=== PATIENT | female | born 1980 | race Caucasian/White ===

== ENCOUNTER 2022-08-03 14:43 | Outpatient (CLI) | payer BC, SELFPAY ==
[2022-08-03 22:39] LABS: Iron* 94 ug/dL (37-170)
[2022-08-03 23:00] LABS: Vitamin D 25 Hydroxy* 43 ng/mL (30-80)
[2022-08-03 23:01] LABS: Free T4 Free Thyroxine* 1.04 ng/dL (0.70-1.85)
[2022-08-03 23:18] LABS: Ferritin* 26.7 ng/mL (6.24-137.0)
[2022-08-04 00:12] LABS: Chloride* 107 mmol/L (96-114)
[2022-08-04 00:13] LABS: Albumin* 4.8 g/dL (3.3-5.0); Sodium* 140 mmol/L (135-149)
[2022-08-04 00:14] LABS: Potassium* 4.4 mmol/L (3.6-5.1)
[2022-08-04 00:16] LABS: Aspartate Amino Transferase* 22 U/L (12-35); Bilirubin Total* 0.7 mg/dL (0.1-1.5); Carbon Dioxide* 22 mmol/L (20-32); Cholesterol* 230 mg/dL (90-199); Creatinine* 0.7 mg/dL (0.5-1.5); Estimated Glomerular Filt Rate 113 ml/min; Total Protein* 7.6 g/dL (6.0-8.3)
[2022-08-04 00:17] LABS: Alanine Aminotransferase* 16 U/L (4-35); Alkaline Phosphatase* 44 U/L (40-150); Blood Urea Nitrogen* 10 mg/dL (5-24); Calcium* 9.5 mg/dL (8.4-10.6); Glucose* 72 mg/dL (60-115); HDL Cholesterol* 65 mg/dL (>=50); LDL Cholesterol Calculated 124 mg/dL (<100); Triglycerides* 205 mg/dL (40-149)
[2022-08-04 00:39] LABS: C Reactive Protein* < 0.5 mg/dL (0.5-1.0)
[2022-08-05 18:34] LABS: Thyroid Peroxidase (TPO) Ab 2.9 IU/mL (0.0-9.0)
[2022-08-05 18:35] LABS: Estradiol Premenol Female 55 pg/mL
[2022-08-05 18:46] LABS: Thyroglob Bill Billed; Thyroglobulin Antibody <0.9 IU/mL (0.0-4.0); Thyroglobulin, Serum or Plasma 20.2 ng/mL (1.3-31.8)
[2022-08-05 20:31] LABS: Homocysteine, Total 9 umol/L (0-15)
[2022-08-05 20:44] LABS: Free T3 2.6 pg/mL (2.5-4.3); Transferrin 229 mg/dL (200-360)
[2022-08-05 21:15] LABS: DHEAS 165 ug/dL (61-337)
[2022-08-06 02:45] LABS: Insulin, Random 8 uIU/mL
[2022-08-06 04:12] LABS: EBV Antibody-Early (D)Ag IgG 52.3 U/mL (0.0-10.9)
[2022-08-08 06:35] LABS: Progesterone, HPLC-MS/MS <0.10 ng/mL
[2022-08-09 14:31] LABS: Sex Hormone Binding Globulin 79 nmol/L (25-122); Testosterone, Free LC-MS/MS 1.9 pg/mL (1.3-9.2); Testosterone, LC-MS/MS 20 ng/dL (9-55)
[2022-08-10 12:18] LABS: MMA Vitamin B12 Status 0.14 umol/L (0.00-0.40)
[2022-08-11 16:18] LABS: T3 Reverse - LC-MS/MS 16.8 ng/dL (9.0-27.0); T3, Ratio (T3:RT3) 5.5 (4.2-11.0); T3, Total - LC-MS/MS 92 ng/dL (80-200)
== END 2022-08-03 14:44 | disposition home or self-care (01) ==
PROVIDERS: Visit Provider Registered Nurse
DX: Z01.419 Encounter for gynecological examination (general) (routine) without abnormal findings (principal); R10.9 Unspecified abdominal pain; Z01.89 Encounter for other specified special examinations
CPT/HCPCS: 80053; 80061; 82306; 82607; 82627; 82670; 82728; 83036; 83090; 83525; 83540; 84144; 84270; 84402; 84403; 84432; 84439; 84443; 84466; 84480; 84481; 84482; 85025; 86140; 86376; 86663; 86800

== ENCOUNTER 2024-10-31 14:45 | Outpatient (CLI) | payer BC, SELFPAY ==
--- NOTE | 2024-10-31 15:00 | CRLHL7_ITS ---
For Patients: As a result of the Cures Act, medical imaging exams and procedure reports are released immediately into your electronic medical record. You may view this report before your referring provider. If you have questions, please contact your health care provider. BILATERAL DIGITAL SCREENING MAMMOGRAM WITH COMPUTER-AIDED DETECTION AND TOMOSYNTHESIS CLINICAL HISTORY: Routine screening exam. COMPARISON: None. TECHNIQUE: Digital mammogram in CC and MLO projections including computer-aided detection (CAD). Tomosynthesis was used in this interpretation. BREAST COMPOSITION: The breasts are extremely dense, which lowers the sensitivity of mammography. FINDINGS: RIGHT Breast: Clustered calcifications within the lateral breast 9 o`clock 5 cm from the nipple. LEFT Breast: No suspicious findings. IMPRESSION: RIGHT breast calcifications. RECOMMENDATIONS: Spot compression magnification views of the calcifications in the RIGHT breast in CC and ML projections. [facility] will contact the patient. A lay language report of this examination will be provided to the patient. BI-RADS Category 0: Incomplete: Need Additional Imaging Evaluation Dictated by Derrick Klein MD @ 11/03/2024 9:28:03 AM jj/Dictated by: Derrick Klein MD @ 11/03/2024 9:28:00 AM (Electronically Signed)
== END 2024-10-31 14:46 | disposition home or self-care (01) ==
PROVIDERS: Visit Provider Registered Nurse
DX: Z12.31 Encounter for screening mammogram for malignant neoplasm of breast (principal); R92.343 Mammographic extreme density, bilateral breasts
CPT/HCPCS: 77063; 77067

== ENCOUNTER 2024-11-07 07:37 | Outpatient (CLI) | payer BC, SELFPAY ==
--- NOTE | 2024-11-07 07:45 | CRLHL7_ITS ---
For Patients: As a result of the Cures Act, medical imaging exams and procedure reports are released immediately into your electronic medical record. You may view this report before your referring provider. If you have questions, please contact your health care provider. DIGITAL DIAGNOSTIC RIGHT MAMMOGRAM CLINICAL HISTORY: RIGHT breast calcifications. COMPARISON: 10/31/2024. TECHNIQUE: Digital RIGHT mammogram in three projections. BREAST COMPOSITION: The breasts are extremely dense, which lowers the sensitivity of mammography. FINDINGS: Additional mammogram views demonstrate loosely grouped slightly pleomorphic calcifications within the upper-outer quadrant, 10 o`clock, 5 cm from the nipple. No definitive layering on the true lateral images. No associated mass. IMPRESSION: Mildly suspicious calcifications RIGHT breast upper outer quadrant 10 o`clock 5 cm from the nipple. RECOMMENDATIONS: Stereotactic-guided biopsy should be considered. A lay language report of this examination will be provided to the patient. BI-RADS Category 4: Suspicious Dictated by Derrick Klein MD @ 11/07/2024 1:00:01 PM jj/Dictated by: Derrick Klein MD @ 11/07/2024 1:00:00 PM (Electronically Signed)
== END 2024-11-07 07:38 | disposition home or self-care (01) ==
LOC: MAMMO 07:38
PROVIDERS: Visit Provider Registered Nurse
DX: R92.1 Mammographic calcification found on diagnostic imaging of breast (principal); R92.343 Mammographic extreme density, bilateral breasts
CPT/HCPCS: 77065; G0279